=== PATIENT | male | born 1960 | race Caucasian/White ===

== ENCOUNTER → 2020-07-12 11:31 | Outpatient (CLI) | payer OTHER, SELFPAY ==
[2020-07-12 12:25] LABS: COVID19 -Nasal RAPID Negative (Negative)
== END ==
PROVIDERS: Visit Provider Student in an Organized Health Care Education/Training Program
DX: Z20.822 Contact with and (suspected) exposure to COVID-19 (principal)
CPT/HCPCS: 87635

== ENCOUNTER 2020-07-14 13:28 | Day surgery (SDC) | payer OTHER, SELFPAY ==
--- NOTE | 2020-07-14 08:54 | PM.PREOP ---
Pre-operative Note COVID-19 COVID-19 status: Negative Result date/Date tested (Pos, Neg/Pending): 07/12/20 Interval Note History & Physical reviewed/Exam performed by Physician: Yes Changes to H&P: No ASA Class (for procedural sedation): II
--- NOTE | 2020-07-14 08:55 | PM.OP.ENDO ---
Operative Date/Time/Diagnoses Date of procedure: 07/14/20 Procedure Notes Procedure in detail: ENDOSCOPIST: Varsha Jane MD Sedation RN: Jen Grande RN Sedation start time: Sedation end time: PROCEDURE: Colonoscopy [] INDICATIONS: 1. Screening for colon cancer MEDICATION: Levsin 0.125 mg sublingual, incremental doses of Versed and fentanyl until appropriate level sedation achieved. ASA CLASS: 2 CECAL WITHDRAWAL TIME: [] COMPLICATIONS: None. EXTENT OF PROCEDURE: Cecum. QUALITY OF PREP: []Good with portions of liquid stool. PROCEDURE: Prior to insertion of the colonoscope, a digital rectal examination was accomplished with circumferential palpation of the distal rectal mucosa without significant findings being noted.[] The high-definition [] colonoscope was passed into the rectum in the usual fashion and advanced over to the cecum without difficulty. The ileocecal valve, appendiceal stoma, and medial wall all could be inspected and []no abnormalities were seen. ASCENDING COLON: J maneuver was produced in the cecum and the proximal folds of the ascending colon were carefully inspected to the hepatic flexure and []. As the colonoscope was withdrawn, care was taken to expose and inspect the haustral folds and no abnormalities were seen. [] HEPATIC FLEXURE: Normal no polyps, diverticula or other abnormalities. [] TRANSVERSE COLON: Normal no polyps, diverticula or other abnormalities. [] DESCENDING COLON: Normal no polyps, diverticula or other abnormalities. [] SIGMOID COLON: Normal no polyps, diverticula or other abnormalities. [] RECTUM: Normal. J maneuver was produced. There was no significant perianal disease. The J maneuver was broken. The remainder of the rectum was inspected and there was [] no external hemorrhoid disease. The scope was withdrawn. IMPRESSION: 1. [] PLAN: 1. [] The possibility of a missed lesion including a malignancy has been discussed with the patient previously. Potential alarm symptoms have been discussed and should be reported immediately.
[2020-07-14 13:51] VITALS: BP 145/98; PULSE 95; RESP 16; TEMP 36.4; O2SAT 97; BMI 29.5
[2020-07-14] MEDS: HYOSCYAMINE 0.125 MG TABLET PO (13:59)
[2020-07-14] MEDS: LACTATED RINGERS 1,000 ML 200 ML IV (14:00)
--- NOTE | 2020-07-14 15:23 | SUR.PREOP ---
PATIENT IS DISCHARGED FROM PREOP WITHOUT UNDERGOING PROCEDURE PER MD ORDER DUE TO NEW ONSET AFIB CONFIRMED BY EKG. HE IS TO FOLLOW UP WITH DR. DELCID PER HER INSTRUCTIONS FOR CARDIAC WORK-UP OUTPATIENT PER HER INSTRUCTIONS. HANDOUTS PROVIDED ON ATRIAL FIB. AND REVIEWED WITH PATIENT. HE CONFIRMS UNDERSTANDING OF S/SX'S WARRANTING CALL TO 911 LISTED IN HANDOUT.
== END 2020-07-14 15:20 | disposition home or self-care (01) ==
PROVIDERS: PCP Student in an Organized Health Care Education/Training Program; Referring Provider Student in an Organized Health Care Education/Training Program; Visit Provider Student in an Organized Health Care Education/Training Program
PROC: 0DJD8ZZ Inspection of Lower Intestinal Tract, Via Natural or Artificial Opening Endoscopic (ICD-10-PCS; CPT 45378; principal; 2020-07-14 14:30)
DX: Z12.11 Encounter for screening for malignant neoplasm of colon (principal); K21.9 Gastro-esophageal reflux disease without esophagitis; Z53.09 Procedure and treatment not carried out because of other contraindication; I48.91 Unspecified atrial fibrillation
CPT/HCPCS: 45378; 93005

== ENCOUNTER → 2020-07-21 11:10 | Outpatient (CLI) | payer OTHER, SELFPAY ==
[2020-07-21] MEDS: COVID-19 VACC, Ad26(JANSSEN)/PF 0.5 ML IM (11:23)
== END ==
PROVIDERS: PCP Student in an Organized Health Care Education/Training Program; Visit Provider Internal Medicine
DX: Z23 Encounter for immunization (principal)
CPT/HCPCS: 0031A; 91303

== ENCOUNTER → 2020-08-10 07:51 | Outpatient (CLI) | payer OTHER, SELFPAY ==
--- NOTE | 2020-08-10 07:54 | DI.ECHO.S_ITS ---
[facility]---------+ [facility] +---------+ : : [address] : : : : [id number] : : : : Phone: [phone] Echocardiogram Report + + :Name: SHAHRAM JOE Study Date: 08/10/2020 Height: 74 in : :[facility] ReadingLocation: Weight: 230 lb : : Gender: Male BSA: 2.3 m2 : :: 1960 Age: 60 yrs BP: 143/95 mmHg: :Reason For Study: Atrial fibrillation : :Ordering Physician: FARHANA, : :RONY Performed By: Terrance Arguelles : :Referring: RONY DELCID : + + Interpretation Summary The ejection fraction is estimated to be 50-55%. The right ventricular systolic pressure is estimated to be at least 26 mmHg based on an estimated right atrial pressure of 3 mm Hg. There is trace mitral regurgitation. Procedure: A two-dimensional transthoracic echocardiogram with color flow and Doppler was performed. The study quality was technically good. There is no prior echocardiogram noted for this patient. The patient was in atrial fibrillation with heart rates between 73-96 bpm during the exam. Left Ventricle: The left ventricle is normal in size and wall thickness. Left ventricular systolic function is normal. The ejection fraction is estimated to be 50-55%. There are no focal wall motion abnormalities. Diastolic function could not be accurately assessed due to atrial fibrillation. Right Ventricle: The right ventricle is normal in size and function. Atria: Both atria are normal in size. There is no Doppler evidence for an interatrial shunt. Mitral Valve: The mitral valve is normal in structure and function. There is trace mitral regurgitation. Aortic Valve: The aortic valve is normal in structure and function. No aortic regurgitation is present. Tricuspid Valve: The tricuspid valve is normal in structure and function. There is trace tricuspid regurgitation. The right ventricular systolic pressure is estimated to be at least 26 mmHg based on an estimated right atrial pressure of 3 mm Hg. Pulmonic Valve: The pulmonic valve is not well visualized. Great Vessels: The aortic root is normal size. The dimensions of the ascending aorta are normal. The IVC is of normal diameter and collapses greater than 50% with a sniff. This suggests a low right atrial pressure of 3 mm Hg. Pericardium/ Pleura There is no pericardial effusion. There is no pleural effusion. MMode/2D Measurements & Calculations LVIDd: 4.8 cm LVOT diam: 2.1 cm LVIDs: 3.1 cm Ao root diam: 3.2 cm FS: 35.8 % asc Aorta Diam: 3.4 cm IVSd: 0.95 cm LVPWd: 0.86 cm LV garrett. diameter/BSA (cm/m^2): 2.1 LV sys. diameter/BSA (cm/m^2): 1.3 LA A2 area: 17.2 cm2 RA area: 18.1 cm2 LA A4 area: 19.1 cm2 LA length (vol): 5.2 cm LA vol: 53.1 ml LA vol index: 23.0 ml/m2 RVD1 (basal): 2.2 cm TAPSE: 2.0 cm Doppler Measurements & Calculations Ao V2 max: 87.8 cm/sec LVOT Max Jordan: 77.0 cm/sec Ao V2 mean: 65.9 cm/sec LV V1 max P.4 mmHg Ao max P.1 mmHg LV V1 VTI: 14.1 cm Ao mean P.9 mmHg JOSE(I,D): 3.0 cm2 Ao V2 VTI: 15.8 cm JOSE(V,D): 3.0 cm2 sev ratio: 0.89 JOSE indexed to BSA (cm^2/m^2): 1.3 TR max jordan: 238.4 cm/sec SV(LVOT): 47.8 ml TR max P.7 mmHg PA V2 max: 87.5 cm/sec PA V2 mean: 61.7 cm/sec PA mean P.7 mmHg PA pr(Accel): 45.8 mmHg Reading Physician:09:41 AM
== END ==
PROVIDERS: PCP Student in an Organized Health Care Education/Training Program; Referring Provider Student in an Organized Health Care Education/Training Program; Visit Provider Student in an Organized Health Care Education/Training Program
DX: I48.91 Unspecified atrial fibrillation (principal)
CPT/HCPCS: 93306

== ENCOUNTER → 2020-08-28 08:53 | Outpatient (ROUT) | payer OTHER, SELFPAY ==
[2020-08-28 09:13] LABS: INR 1.2 (0.9-1.3); Prothrombin Time 13.7 SECONDS (10.1-12.7)
== END ==
PROVIDERS: PCP Student in an Organized Health Care Education/Training Program; Visit Provider Student in an Organized Health Care Education/Training Program
DX: I48.91 Unspecified atrial fibrillation (principal)
CPT/HCPCS: 85610

== ENCOUNTER → 2020-09-04 09:41 | Outpatient (ROUT) | payer OTHER, SELFPAY ==
[2020-09-04 09:50] LABS: INR 1.3 (0.9-1.3)
--- OUTSIDE RECORDS SUMMARY | 2020-09-13 08:42 | XMS_ITS | Referral Summary ---
:1960 Author Organization [address] [address] Care Team Providers Name Role Phone Varsha Jane MD Primary Care Provider [phone] Reason for Referral Consultation (Routine) Status Reason Specialty Diagnoses / Referred By Referred To Procedures Contact Contact Closed Specialty Sleep Medicine Diagnoses Paroxysmal atrial fibrillation (CMS/HCC) Jayme [facility] Required [address] [place] [id number] [place], Phone: [place] [phone] Electronically signed by Jayme ONEIL atDiagnostic Imaging (Routine) Status Reason Specialty Diagnoses / Referred By Referred To Procedures Contact Contact Pending Specialty Radiology Diagnoses Paroxysmal atrial fibrillation (CMS/HCC) Jayme Lemus [facility] Services Procedures [facility] Required [address] [place] [address] [address] [place] [address] Electronically signed by Jayme ONEIL at (Routine) Status Reason Specialty Diagnoses / Referred By Referred To Procedures Contact Contact Pending Review Diagnoses Paroxysmal atrial fibrillation (CMS/HCC) Jayme Lemus Procedures ECHOCARDIOGRAM STRESS ISCHEMIA PA [address] [place] [address] [address] [place] [address] Electronically signed by Jamye ONEIL atConsultation (Routine) Status Reason Specialty Diagnoses / Referred By Referred To Procedures Contact Contact Canceled Specialty Sleep Medicine Diagnoses Paroxysmal atrial fibrillation (CMS/HCC) Jayme Lemus [facility] Required [address] [facility] [address] [place] [phone] [place] [phone] Phone: Fax: Electronically signed by Jayme ONEIL at Reason for Visit Reason Comments Atrial Fibrillation Evaluate and Treat (Routine) Status Reason Specialty Diagnoses / Procedures Referred By Brandon cobos To Contact Contact Authorized Diagnoses Unspecified atrial fibrillation Varsha Jane CARDIOLOGY Procedures [place] OFFICE OUTPATIENT VISIT MD Shweta [address] [place] [address] [place] [phone] Phone: Phone: [phone] Encounter Details Date Type Department Care Team Description 08/31/2020 Office Visit Merged With [facility] Nick Chavez Paroxysma l atrial Clinics Cardiology MD fibrillation ([facility]) [address] (Primary Dx) [address] [place] [address], [address] [phone] Allergies No Known Active Allergiesdocumented as of this encounter (statuses as of 09/06/2020) Medications Medication Sig Dispensed Refills Start Date End Date Status warfarin (COUMADIN) 1 Take 2 mg by 0 08/16/2020 Active mg tablet mouth daily documented as of this encounter (statuses as of 09/06/2020) Active Problems Problem Noted Date Paroxysmal atrial fibrillation 08/31/2020 documented as of this encounter (statuses as of 09/06/2020) Social History Tobacco Use Types Packs/Day Years Used Date Never Smoker Smokeless Tobacco: Never Used Sex Assigned at Date Recorded Not on file Job Start Date Occupation Industry Not on file Not on file Not on file documented as of this encounter Last Filed Vital Signs Vital Sign Reading Time Taken Comments Blood Pressure 108/70 08/31/2020 3:18 PM PDT Pulse 84 08/31/2020 3:18 PM PDT Temperature - - Respiratory Rate - - Oxygen Saturation - - Inhaled Oxygen Concentration - - Weight 102 kg (225 lb) 08/31/2020 3:18 PM PDT Height 189.2 cm (6' 2.5) 08/31/2020 3:18 PM PDT Body Mass Index 28.5 08/31/2020 3:18 PM PDT documented in this encounter Progress Notes Jayme Lemus, [facility] - 08/31/2020 3:00 PM PDT Subjective Patient ID: Chaitanya Moe is a 60 y.o. male that had no chief complaint listed for this encounter. HPI: 59 yo m w/ preserved LV function and pmh of GERD and persistent atrial fibrillation, on warfarin. Referred to EP for newly diagnosed afib. Was incidentally found to be in afib during recent colonoscopy. During follow up with PCP was started on warfarin and TTE and 7 day ambulatory monitor were ordered. TTE shows a grossly structurally and functionally normal heart with mild MR. 7 day monitor shows a 100% afib burden with borderline rate control. He reports feeling well overall. Remains active, plays golf frequently and is able to walk 18 holes though he reports feeling somewhat winded by the end of the course. He otherwise denies chest pain, shortness of breath, dyspnea on exertion, postural nocturnal dyspneasymptoms, palpitations, light headedness, dizziness, syncope or near syncope. He reports minimal ETOH use, 2 servings of caffeine a day, no tobacco use. He does report some symptoms suspicious for NAKITA. History reviewed. No pertinent past medical history. History reviewed. No pertinent surgical history. History reviewed. No pertinent family history. Social History Socioeconomic History ??? Marital status: Spouse name: Not on file ??? Number of children: Not on file ??? Years of education: Not on file ??? Highest education level: Not on file Tobacco Use ??? Smoking status: Never Smoker ??? Smokeless tobacco: Never Used No Known Allergies Current Medication List Sig warfarin (COUMADIN) 1 mg tablet Take 2 mg by mouth daily Review of Systems Constitutional: Positive for fatigue. Negative for unexpected weight change. Eyes: Negative for visual disturbance. Respiratory: Negative for chest tightness and shortness of breath. Cardiovascular: Negative for chest pain, palpitations and leg swelling. Gastrointestinal: Negative for blood in stool. Heartburn Endocrine: Negative for polydipsia. Genitourinary: Negative for hematuria. Skin: Negative for rash. Neurological: Negative for dizziness, syncope, weakness and light-headedness. Hematological: Does not bruise/bleed easily. Psychiatric/Behavioral: The patient is not nervous/anxious. All other systems reviewed and are negative. Objective BP 108/70 (BP Location: Left arm, Patient Position: Sitting) Pulse 84 Ht 1.892 m Wt 102 kg BMI 28.50 kg/m?? Physical Exam: General Appearance: Well-nourished, pleasant, cooperative, no apparent distress HEET: Normocephalic atraumatic, EOMI, no scleral icterus, no arcus, tongue midline, mucous membranesmoist, good dentition Neck: No obvious mass, supple Respiratory: Good aeration, clear to auscultation and percussion, no rales or wheeze Cardiovascular: Nondisplaced PMI, RRR, normal S1 and normal S2, no murmurs/rubs/gallops, JVP 4-5 cm,no JVD Pulses: Carotid and femoral pulses 2+ bilaterally without bruit, dorsalis pedis and anterior tibial pulses 2+ bilaterally Abdomen: Soft, nondistended, nontender, no heptosplenomegally, no hepatojugular reflux, normal bowelsounds without bruits Extremities: No clubbing, cyanosis or edema Neuro: Alert, no facial droop, tongue midline, no gross motor deficits Psych: Appropriate affect, normal mentation and memory Skin: Warm and dry, no rashes on face, neck, and lower extremities Assessment/Plan 59 yo m w/ preserved LV function and pmh of GERD and persistent atrial fibrillation, on warfarin. Persistent atrial fibrillation Persistent atrial fibrillation with borderline rate control. Normal size LA. Recommended stress echofor ischemic r/o as well as 4 weeks of INRs followed by DCCV for trial of medical therapy. -Continue INRs -Weekly until DCCV -DCCV following 4 weeks of INRs. -Sleep medicine referral. Electronically signed by Nick Chavez MD 08/31/2020 4:06 PM Associated attestation - Nick Chavez MD - 08/31/2020 4:11 PM PDTI saw and evaluated the patient, participating in the avendaño portions of the service. I reviewed Alis's note. I agree with his findings and plan.documented in this encounter Plan of Treatment Scheduled Orders Name Type Priority Associated Diagnoses Order S chedule ECHOCARDIOGRAM STRESS Imaging Routine Paroxysmal atrial E xpected: ISCHEMIA fibrillation [place]31[place]2020, [place] Ex[place]: 2022 RUPAL CARDIOVERSION Imaging Routine Paroxysmal atrial Expec radha: fibrillation 08/31/2020, [place] Ex[place]: 2021 SARS-CoV-2 (COVID-19) Microbiology Routine Paroxysmal atrial 1 Occurrences QUAL PCR (General fibrillation starting 0 08/31/2020 Screening) [place] until 2 Scheduled Referrals Name Type Priority Associated Diagnoses Order S chedule SRC MV Referral to Outpatient Referral Routine Paroxysmal atri al Ordered: [facility] fibrillation 08/31/2020 [place] XTRNL Referral to Outpatient Referral Routine Paroxysmal atria l Ordered: Sleep Medicine fibrillation 08/31/2020 [place] documented as of this encounter Procedures Procedure Name Priority Date/Time Associated Diagnosis Comme nts ECG 12-LEAD Routine 08/31/2020 3:27 PM Paroxysmal atrial Res ults for this PDT fibrillation [place] proce dure are in the results section. documented in this encounter Results ECG 12 Lead (Clinic - Future) (08/31/2020 3:27 PM PDT) Narrative Performed At This result has an attachment that is no t available. Result approved by Nick Chavez MD on 08/31/20 documented in this encounter Visit Diagnoses Diagnosis Paroxysmal atrial fibrillation [place] - Primary Atrial fibrillation documented in this encounter Guarantor Name Account Type Relation to Date of Phone Billing Address Patient Chaitanya Moe Personal/Family Self 1960 [phone]) [place] [address] documented as of this encounter Advance Directives Documents on File Type Date Recorded Patient Manager Line Explanati on Advance Directives and Living Will
== END ==
PROVIDERS: PCP Student in an Organized Health Care Education/Training Program; Visit Provider Student in an Organized Health Care Education/Training Program
DX: I48.91 Unspecified atrial fibrillation (principal); Z79.01 Long term (current) use of anticoagulants
CPT/HCPCS: 85610

== ENCOUNTER → 2020-09-13 09:09 | Outpatient (ROUT) | payer OTHER, SELFPAY ==
[2020-09-13 09:30] LABS: INR 1.5 (0.9-1.3); Prothrombin Time 16.3 SECONDS (10.1-12.7)
== END ==
PROVIDERS: PCP Student in an Organized Health Care Education/Training Program; Visit Provider Student in an Organized Health Care Education/Training Program
DX: Z79.01 Long term (current) use of anticoagulants (principal)
CPT/HCPCS: 85610

== ENCOUNTER → 2020-09-20 09:58 | Outpatient (ROUT) | payer OTHER, SELFPAY ==
[2020-09-20 10:07] LABS: INR 1.9 (0.9-1.3)
== END ==
PROVIDERS: PCP Student in an Organized Health Care Education/Training Program; Visit Provider Student in an Organized Health Care Education/Training Program
DX: Z79.01 Long term (current) use of anticoagulants (principal)
CPT/HCPCS: 85610

== ENCOUNTER → 2020-09-27 09:13 | Outpatient (ROUT) | payer OTHER, SELFPAY ==
[2020-09-27 09:21] LABS: INR 3.8 (0.9-1.3); Prothrombin Time 43.7 SECONDS (10.1-12.7)
== END ==
PROVIDERS: PCP Student in an Organized Health Care Education/Training Program; Visit Provider Student in an Organized Health Care Education/Training Program
DX: Z79.01 Long term (current) use of anticoagulants (principal)
CPT/HCPCS: 85610

== ENCOUNTER → 2020-10-03 11:10 | Outpatient (ROUT) | payer OTHER, SELFPAY ==
[2020-10-03 11:25] LABS: INR 3.7 (0.9-1.3)
== END ==
PROVIDERS: PCP Student in an Organized Health Care Education/Training Program; Visit Provider Student in an Organized Health Care Education/Training Program
DX: Z79.01 Long term (current) use of anticoagulants (principal)
CPT/HCPCS: 85610

== ENCOUNTER → 2020-12-06 08:30 | Outpatient (ROUT) | payer OTHER, SELFPAY ==
[2020-12-06 08:43] LABS: INR 2.7 (0.9-1.3); Prothrombin Time 30.4 SECONDS (10.1-12.7)
== END ==
PROVIDERS: PCP Student in an Organized Health Care Education/Training Program; Visit Provider Student in an Organized Health Care Education/Training Program
DX: Z79.01 Long term (current) use of anticoagulants (principal)
CPT/HCPCS: 85610

== ENCOUNTER → 2020-12-13 13:45 | Outpatient (ROUT) | payer OTHER, SELFPAY ==
[2020-12-13 13:52] LABS: INR 2.9 (0.9-1.3); Prothrombin Time 33.4 SECONDS (10.1-12.7)
== END ==
PROVIDERS: PCP Student in an Organized Health Care Education/Training Program; Visit Provider Student in an Organized Health Care Education/Training Program
DX: Z79.01 Long term (current) use of anticoagulants (principal)
CPT/HCPCS: 85610

== ENCOUNTER → 2020-12-27 11:14 | Outpatient (ROUT) | payer OTHER, SELFPAY ==
[2020-12-27 11:44] LABS: Prothrombin Time 23.3 SECONDS (10.1-12.7)
== END ==
PROVIDERS: PCP Student in an Organized Health Care Education/Training Program; Visit Provider Student in an Organized Health Care Education/Training Program
DX: Z79.01 Long term (current) use of anticoagulants (principal)
CPT/HCPCS: 85610

== ENCOUNTER → 2021-01-03 10:08 | Outpatient (ROUT) | payer OTHER, SELFPAY ==
[2021-01-03 10:26] LABS: INR 2.2 (0.9-1.3); Prothrombin Time 24.6 SECONDS (10.1-12.7)
== END ==
PROVIDERS: PCP Student in an Organized Health Care Education/Training Program; Visit Provider Student in an Organized Health Care Education/Training Program
DX: Z79.01 Long term (current) use of anticoagulants (principal)
CPT/HCPCS: 85610

== ENCOUNTER → 2021-01-10 09:46 | Outpatient (ROUT) | payer OTHER, SELFPAY ==
[2021-01-10 09:54] LABS: INR 2.7 (0.9-1.3); Prothrombin Time 31.9 SECONDS (10.1-12.7)
== END ==
PROVIDERS: PCP Student in an Organized Health Care Education/Training Program; Visit Provider Student in an Organized Health Care Education/Training Program
DX: Z79.01 Long term (current) use of anticoagulants (principal)
CPT/HCPCS: 85610

== ENCOUNTER → 2021-01-17 10:35 | Outpatient (ROUT) | payer OTHER, SELFPAY ==
[2021-01-17 10:59] LABS: INR 2.6 (0.9-1.3); Prothrombin Time 29.9 SECONDS (10.1-12.7)
== END ==
PROVIDERS: PCP Student in an Organized Health Care Education/Training Program; Visit Provider Student in an Organized Health Care Education/Training Program
DX: Z79.01 Long term (current) use of anticoagulants (principal)
CPT/HCPCS: 85610

== ENCOUNTER → 2021-09-19 12:15 | Outpatient (CLI) | payer OTHER, SELFPAY ==
[2021-09-19 12:50] LABS: COVID19 -Nasal RAPID Negative (Negative)
== END ==
PROVIDERS: PCP Student in an Organized Health Care Education/Training Program; Referring Provider Student in an Organized Health Care Education/Training Program; Visit Provider Student in an Organized Health Care Education/Training Program
DX: Z20.822 Contact with and (suspected) exposure to COVID-19 (principal)
CPT/HCPCS: 87635; C9803

== ENCOUNTER 2021-09-21 13:09 | Day surgery (SDC) | payer OTHER, SELFPAY ==
--- NOTE | 2021-09-21 12:15 | PM.HP.1 ---
History of Present Illness History of Present Illness Date Patient Seen: 09/21/21 Chief complaint: SDC Narrative: 60 Years Old Male seen today for consideration of a screening colonoscopy. Last colonoscopy in 2010, normal. He did prep for colonoscopy on 07/14/20, procedure was canceled secondary to new onset atrial fibrillation. He has since had a cardioversion on 12/20/20 that lasted for 48 hours, then reverted back to atrial fibrillation. He then underwent an ablation and has been able to stop his flecainide and metoprolol. He has been off Xarelto since 09/08/21. Pre-op telemetry showed sinus rhythm. FIT test was positive on 02/10/2021. There have been no lower GI symptoms suggesting disease such as change in bowel habits, bleeding, abdominal pain or anemia. There's been no family history of colon cancer or colon polyps. Overall health issues have been stable, including no major cardiac events for at least 6 weeks. 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 Household Members: spouse Judie Education: Masters Patient History Family & Social History Social History: household members spouse Tobacco & Substance use: Smoking Status Never smoker alcohol intake current alcohol intake frequency holiday/special occasion Substance Use Type does not use Meds Home Medications and Allergies Home Medications Medication Instructions Recorded Confirmed Type Oral appliance for moderate NAKITA #1 ea 02/20/21 Rx Allergies Allergy/AdvReac Type Severity Reaction Status Date / Time No Known Drug Allergies Allergy Verified 01/16/21 10:08 Review of Systems Review of Systems Narrative: All remaining ROS were reviewed and negative except as addressed. Exam Narrative Exam Narrative: GENERAL: Alert and oriented, appearing stated age and in no acute distress. HEENT: Head normocephalic/atraumatic. Extraocular movements intact. LUNGS: Clear to ausculation bilaterally, no wheezes, rhonchi or rales. CV: Normal S1 and S2 with regular rate and rhythm, no audible murmurs, rubs or gallops. ABDOMEN: Soft, non-tender, non-distended, no organomegaly. Positive bowel sounds. EXTREMITIES: No clubbing, cyanosis, or edema. NEURO: Cranial nerves II through XII grossly intact, no focal deficits. PSYCH: Alert and oriented x 3. SKIN: No concerning lesions. Assessment & Plan Assessment & Plan narrative: 1. Positive fit test 2. Screening for colon cancer Plan for colonoscopy. The nature and character of the procedure as well as anticipated results were discussed. The possibility of not completing the procedure was also discussed. Possible complications including aspiration pneumonia, bleeding, perforation and reaction to medications either for sedation or preparation and missed lesions were discussed. Questions were answered and proceeding to the colonoscopy was elected. Informed consent signed. Patient has been off of his xarelto for 48 hours prior to procedure. Plan will be to restart in 48 hours if procedure routine. I sincerely appreciate the referral allowing me to participate in this patient's care. Please contact me with any questions or concerns.
--- NOTE | 2021-09-21 12:26 | PM.OP.COLON ---
Operative Date/Time/Diagnoses Date of procedure: 09/21/21 Procedure Notes SCOAP/Timeout: 2:38 p.m. Procedure in detail: ENDOSCOPIST: Varsha Jane MD Sedation RN: Naomi Workman RN Sedation start time: 2:39 p.m. Sedation end time: 2:55 p.m. PROCEDURE: Colonoscopy INDICATIONS: 1. Positive FIT test 2. Screening for colon cancer MEDICATION: Levsin 0.125 mg sublingual, incremental doses of Versed and fentanyl until appropriate level sedation achieved. ASA CLASS: 2 CECAL WITHDRAWAL TIME: 9 minutes COMPLICATIONS: None. EXTENT OF PROCEDURE: Cecum. QUALITY OF PREP: Good with portions of liquid stool. PROCEDURE: Prior to insertion of the colonoscope, a digital rectal examination was accomplished with circumferential palpation of the distal rectal mucosa without significant findings being noted. The high-definition colonoscope was passed into the rectum in the usual fashion and advanced over to the cecum without difficulty. The ileocecal valve, appendiceal stoma, and medial wall all could be inspected and no abnormalities were seen. ASCENDING COLON: As the colonoscope was withdrawn, care was taken to expose and inspect the haustral folds and no abnormalities were seen. HEPATIC FLEXURE: Normal, no polyps, diverticula or other abnormalities. TRANSVERSE COLON: Normal, no polyps, diverticula or other abnormalities. DESCENDING COLON: Minor diverticulosis, otherwise, normal, no polyps, or other abnormalities. SIGMOID COLON: Minor diverticulosis, otherwise normal, no polyps, or other abnormalities. RECTUM: Normal. J maneuver was produced. There was no significant perianal disease. The J maneuver was broken. The remainder of the rectum was inspected and there was no external hemorrhoid disease. The scope was withdrawn. IMPRESSION: 1. Normal colonoscopy 2. Left-sided diverticulosis, minor PLAN: 1. Repeat colonoscopy in 10 years. The possibility of a missed lesion including a malignancy has been discussed with the patient previously. Potential alarm symptoms have been discussed and should be reported immediately.
[2021-09-21 13:31] VITALS: BP 137/97; PULSE 80; RESP 16; TEMP 36.3; O2SAT 98; BMI 28.8
[2021-09-21] MEDS: HYOSCYAMINE 0.125 MG TABLET PO (13:46)
[2021-09-21] MEDS: LACTATED RINGERS 1,000 ML 150 ML IV (13:48)
[2021-09-21] MEDS: fentaNYL 250 MCG/5 ML INJ 150 MCG IV (14:53)
[2021-09-21] MEDS: MIDAZOLAM 5 MG/5 ML VIAL IV (14:53)
[2021-09-21 15:01] VITALS: BP 122/88; PULSE 82; RESP 13; TEMP 36.3; O2SAT 93
[2021-09-21 15:06] VITALS: BP 126/81; PULSE 79; RESP 10; O2SAT 94
[2021-09-21 15:11] VITALS: BP 120/82; PULSE 80; RESP 15; TEMP 36.6; O2SAT 94
[2021-09-21 15:24] VITALS: BP 116/76; PULSE 75; RESP 16; TEMP 36.9; O2SAT 98
== END 2021-09-21 15:27 | disposition home or self-care (01) ==
PROVIDERS: PCP Student in an Organized Health Care Education/Training Program; Referring Provider Student in an Organized Health Care Education/Training Program; Visit Provider Student in an Organized Health Care Education/Training Program
PROC: 0DJD8ZZ Inspection of Lower Intestinal Tract, Via Natural or Artificial Opening Endoscopic (ICD-10-PCS; CPT 45378; principal; 2021-09-21 14:30)
DX: K57.30 Diverticulosis of large intestine without perforation or abscess without bleeding (principal)
CPT/HCPCS: 45378; 85610; J2250; J3010

== ENCOUNTER → 2022-07-04 07:43 | Outpatient (CLI) | payer OTHER, SELFPAY ==
[2022-07-04 08:37] LABS: Alanine Aminotransferase 20 IU/L (<50); Albumin 4.1 g/dL (3.5-5.0); Albumin Globulin Ratio 1.3 (1.0-2.8); Alkaline Phosphatase 90 U/L (38-126); Aspartate Aminotransferase 23 IU/L (17-59); Bilirubin Total 0.8 mg/dL (0.2-1.3); Blood Urea Nitrogen 18 mg/dL (9-20); Calcium 8.9 mg/dL (8.4-10.2); Carbon Dioxide 28 mmol/L (22-32); Chloride 105 mmol/L (98-107); Cholesterol 116 mg/dL (140-199); Estimated Glomerular Filt Rate > 60 mL/min (>60); Globulin 3.1 g/dL (1.7-4.1); Glucose 92 mg/dL (80-110); HDL Cholesterol 28 mg/dL (40-60); HEMOLYSIS < 15 (0-50); LDL Cholesterol Calculated 64 mg/dL (<100); Potassium 4.6 mmol/L (3.4-5.1); Sodium 140 mmol/L (137-145); Total Protein 7.2 g/dL (6.3-8.2); Triglycerides 122 mg/dL (35-150)
[2022-07-04 08:46] LABS: Creatinine Urine Random 197.3 mg/dL
[2022-07-04 08:53] LABS: Microalbumin Urine Random < 0.6 mg/dL (0-1.6)
== END ==
PROVIDERS: PCP Family Medicine; Referring Provider Family Medicine; Visit Provider Family Medicine
DX: G47.33 Obstructive sleep apnea (adult) (pediatric) (principal); R03.0 Elevated blood-pressure reading, without diagnosis of hypertension
CPT/HCPCS: 36415; 80053; 80061; 82043; 82570

== ENCOUNTER 2023-03-12 09:00 | Outpatient (RCR) | payer OTHER, SELFPAY ==
--- NOTE | 2023-02-24 09:50 | PT.OIE ---
Current Diagnoses Lumbago with sciatica, unspecified side (02/24/23) Past Medical History (Last Updated 06/30/22 @ 19:34 by Bridgette Mota) A-fib (~2020) Chicken pox Situational anxiety (~2021) Past Surgical History (Last Updated 06/30/22 @ 19:34 by Bridgette Mota) Anesthesia History of cardiac radiofrequency ablation (~2020) Visit Care Team Role Provider Type Ibis Winkler DO Attending Provider Physician Family Provider Primary Care Provider Referring Provider Specialty: Medical Address: [address] [place] [address], [address], [place], [address] Email: [email or web address] Physical Therapy Initial Evaluation PT-OP-A Visit Information Start: 02/19/23 08:52 Freq: Status: Active Protocol: Document 02/24/23 09:50 AM (Rec: 02/24/23 17:09 AM [id number]) Out-Patient Physical Therapy Visit Information Visit Information Visit Type Initial Evaluation Visit Start Time 09:50 Visit Stop Time 10:30 Total Visit Minutes 40 Visit Number 1 Evaluation Information Evaluation Date 02/24/23 PT-OP-B Current Condition Start: 02/19/23 08:52 Freq: Status: Active Protocol: Document 02/24/23 09:50 AM (Rec: 02/24/23 17:09 AM [id number]) Current Condition History of Current Condition Onset Date 6 weeks ago. Current Complaints Minimal R glute pain currently . History of Current Condition Pt reports pain started 6 weeks ago. Pt without known injury to cause back pain. Pt thinks that it might have started from sitting wrong. Pt reports that he mentioned pain to referring provider at yearly check-up and was referred to PT. Between the time from yearly check-up to now, pt reports significant decrease in pain. Pt reports that he is able to play golf without pain. Pt reports that he has been doing a seated figure 4 stretch and that seems to have helped. Pt reports that pain was primarily at his R glute with occasional radicular symptoms to hamstring. Pt denies low back symptoms. Prior Treatments and Tests none Future Testing and Treatments Planned none Treatment Goals Patient/Caregiver Goals Pt reports that he would like to be evaulated to see if there are any exercises that he can do to prevent symptoms from returning. PT-OP-C Subjective Start: 02/19/23 08:52 Freq: Status: Active Protocol: Document 02/24/23 09:50 AM (Rec: 02/24/23 17:09 AM [id number]) OP-PT Subjective Patient Comments Patient Comments Pt reports that he is feeling better since seeing his referring provider, but would like to have ideas in case pain comes back. Patient Questionnaires Oswestry Low Back Index Oswestry Score 6/50 Oswestry Impairment 1 to 19% Impaired (Score 1-19) OP-PT Pain Assessment Pain Assessment Grid Paper Pain Assessment Grid Completed Yes Location R hip Intensity 3 Scale Used Numeric (0 - 10) Description Aching Frequency Intermittent Pain Aggravating Factors Sitting,Bending PT-OP-D Balance Start: 02/19/23 08:52 Freq: Status: Active Protocol: Document 02/24/23 09:50 AM (Rec: 02/24/23 17:09 AM [id number]) Balance Tests Single Limb Standing Single Limb- Right 10 Single Limb- Left 10 PT-OP-K Range of Motion Start: 02/19/23 08:52 Freq: Status: Active Protocol: Document 02/24/23 09:50 AM (Rec: 02/24/23 17:09 AM [id number]) Lumbar Spine Range of Motion Lumbar Spine Active Testing Position Standing Flexion 75 Extension 75 Rotation Left 75 Rotation Right 75 Lateral Flexion Left 75 Lateral Flexion Right 75 Comments flexion: 6.5 in (from fingertips to floor) R lateral flexion: 20 in (from fingertips to floor) L lateral flexion: 18.5 (from finger tips to floor) Ext 35 deg % above is 75% of normal=(100% ) Hip Goniometric Range of Motion Hip Right Active Internal Rotation 29 External Rotation 20 Comments Hamstring 90/90: 35 Left Active Internal Rotation 25 External Rotation 25 Comments Hamstring 90/90: 35 PT-OP-L Special Tests Start: 02/19/23 08:52 Freq: Status: Active Protocol: Document 02/24/23 09:50 AM (Rec: 02/24/23 17:09 AM [id number]) Special Tests Lumbar Spine Special Tests Prone Press Up Test Results negative for sxs, Pt report low back tightness only. PT-OP-M Strength Start: 02/19/23 08:52 Freq: Status: Active Protocol: Document 02/24/23 09:50 AM (Rec: 02/24/23 17:09 AM [id number]) Hip Strength Hip Manual Muscle Testing Right Flexion (L2) 4 Good Extension (S1) 5 Normal Abduction 4- Good- Adduction 5 Normal External Rotation 4- Good- Internal Rotation 4- Good- Comments pain with IR testing Left Flexion (L2) 4 Good Abduction 4- Good- External Rotation 4 Good Internal Rotation 4 Good Knee Strength Knee Manual Muscle Testing Right Flexion (S2) 5 Normal Extension (L3) 5 Normal Left Flexion (S2) 5 Normal Extension (L3) 5 Normal PT-OP-Q Treatments Start: 02/19/23 08:52 Freq: Status: Active Protocol: Document 02/24/23 09:50 AM (Rec: 02/24/23 17:09 AM [id number]) Therapeutic Exercises Supine Exercises Figure 4 stretch Side bilateral Reps/Minutes x30 sec Prone Exercises EMILIA Reps/Minutes x2 min Sidelying Exercises Clamshell Side bilateral Reps/Minutes x10 ea Comments cues for lumbopelvic stab Standing Exercises Hip hinge Equipment Used trekking pole Reps/Minutes x10 Comments cues for hip hinge HS stretch Side bilateral Equipment Used at step Reps/Minutes x30 sec ea LE PT-OP-T Assessment and Plan Start: 02/19/23 08:52 Freq: Status: Active Protocol: Document 02/24/23 09:50 AM (Rec: 02/24/23 17:09 AM [id number]) Physical Therapy Assessment Rehab Potential Rehabilitation Potential Excellent Evaluation Complexity Number of Personal Factors/Comorbidities 1-2 Number of Body Systems Impaired 1-2 Clinical Presentation at Evaluation Stable Impairments Impairments Activity Tolerance,Balance, Functional Activities, Functional Mobility,Gait,Pain, Posture,ROM,Soft Tissue Mobility,Strength Goals Hip hinge Flying Shear Operator Goal (LTG) Pt able to demonstrate proper hip hinge for inproved tolerance to functional bending to tack picker golf ball/ objects. LTG Duration 03/24/23 Hamstring length Retirement Goal (LTG) Pt with HS 90/90 length of 25 deg. LTG Duration 03/24/23 HEP Retirement Goal (LTG) Pt independent with HEP. LTG Duration 03/24/23 Assessment Summary Assessment Chaitanya Moe presents to PT with hx of R glute pain. Pt without pain during assessment today. Pt demonstrates good standing lumbar ROM without pain. Pt able to tolerate prone press-up without reported stiffness at low back. Pt with some anterior hip impingement-type pain with DKTC. Pt demonstrates limitations in ROM at eugenia hamstrings, glutes and hip flexors. Pt demonstrates mild weakness at bilateral glutes. Pt with difficulty with lower abdominal stabilization with lower abdominal testing, though denies pain. Pt challenged with hip-hinge and would benefit from continued education. Pt would benefit from continued PT to progress postural strength and LE mobility to decrease pain and prevent future exacerbation of pain. Physical Therapy Plan Frequency and Duration Frequency of Treatment 1x/Week Duration of treatment (weeks) 4 Plan of Care Start Date 02/24/23 Plan of Care End Date 03/24/23 Therapeutic Interventions Therapeutic Interventions Balance Training,Gait Training ,Home Exercise Program,Joint Mobilizations,Manual Therapy, Neuromuscular Re-education, Patient/Caregiver Education, Self-Care/Home Management,Soft Tissue Mobilization, Therapeutic Activities, Therapeutic Exercises Modalities Cold Pack/Ice Massage,Electric Stimulation,Hot Packs, Ultrasound Next Visit Focus/Plan Next Note Type Treatment Note Next Visit Plan Progress HEP, progress trunk and lumbopelvic strength, assess functional hip hinge
--- NOTE | 2023-02-24 09:50 | PT.OPPOC ---
Physical, Occupational & Speech Therapy At [facility] Current Diagnoses Lumbago with sciatica, unspecified side (02/24/23) Visit Care Team Role Provider Type Ibis Winkler DO Attending Provider Physician Family Provider Primary Care Provider Referring Provider Specialty: Medical Address: [address] [place] [address], [address], [place], [address] Email: [email or web address] Plan Of Care PT-OP-T Assessment and Plan Start: 02/19/23 08:52 Freq: Status: Active Protocol: Document 02/24/23 09:50 AM (Rec: 02/24/23 17:09 AM [id number]) Physical Therapy Assessment Rehab Potential Rehabilitation Potential Excellent Evaluation Complexity Number of Personal Factors/Comorbidities 1-2 Number of Body Systems Impaired 1-2 Clinical Presentation at Evaluation Stable Impairments Impairments Activity Tolerance,Balance, Functional Activities, Functional Mobility,Gait,Pain, Posture,ROM,Soft Tissue Mobility,Strength Goals Hip hinge Second Facing Baster Goal (LTG) Pt able to demonstrate proper hip hinge for inproved tolerance to functional bending to apple picking supervisor golf ball/ objects. LTG Duration 03/24/23 Hamstring length Second Facing Baster Goal (LTG) Pt with HS 90/90 length of 25 deg. LTG Duration 03/24/23 HEP Second Facing Baster Goal (LTG) Pt independent with HEP. LTG Duration 03/24/23 Assessment Summary Assessment Chaitanya Moe presents to PT with hx of R glute pain. Pt without pain during assessment today. Pt demonstrates good standing lumbar ROM without pain. Pt able to tolerate prone press-up without reported stiffness at low back. Pt with some anterior hip impingement-type pain with DKTC. Pt demonstrates limitations in ROM at eugenia hamstrings, glutes and hip flexors. Pt demonstrates mild weakness at bilateral glutes. Pt with difficulty with lower abdominal stabilization with lower abdominal testing, though denies pain. Pt challenged with hip-hinge and would benefit from continued education. Pt would benefit from continued PT to progress postural strength and LE mobility to decrease pain and prevent future exacerbation of pain. Physical Therapy Plan Frequency and Duration Frequency of Treatment 1x/Week Duration of treatment (weeks) 4 Plan of Care Start Date 02/24/23 Plan of Care End Date 03/24/23 Therapeutic Interventions Therapeutic Interventions Balance Training,Gait Training ,Home Exercise Program,Joint Mobilizations,Manual Therapy, Neuromuscular Re-education, Patient/Caregiver Education, Self-Care/Home Management,Soft Tissue Mobilization, Therapeutic Activities, Therapeutic Exercises Modalities Cold Pack/Ice Massage,Electric Stimulation,Hot Packs, Ultrasound Next Visit Focus/Plan Next Note Type Treatment Note Next Visit Plan Progress HEP, progress trunk and lumbopelvic strength, assess functional hip hinge Plan of Care Dates Plan of Care Start Date 02/24/23 Plan of Care End Date 03/24/23 Electronically Signed by: Niharika Lozada, PT 02/24/23 [id number] If you are in agreement with this Plan of Care, please return a signed and dated copy. I have reviewed this Plan of Care and certify that the skilled therapy services above are required to meet the patient?s needs. Physician Signature Date Printed Name and Credentials Clinical Instructor Signature Printed Name and Credentials
--- NOTE | 2023-03-04 09:53 | PT.OTN ---
Current Diagnoses Lumbago with sciatica, unspecified side (03/04/23) Physical Therapy Treatment Note PT-OP-A Visit Information Start: 02/19/23 08:52 Freq: Status: Active Protocol: Document 03/04/23 09:53 AM (Rec: 03/04/23 11:58 AM [id number]) Out-Patient Physical Therapy Visit Information Visit Information Visit Type Treatment Note Visit Start Time 09:53 Visit Stop Time 10:32 Total Visit Minutes 39 Visit Number 2 PT-OP-B Current Condition Start: 02/19/23 08:52 Freq: Status: Active Protocol: Document 03/04/23 09:53 AM (Rec: 03/04/23 11:58 AM [id number]) Current Condition History of Current Condition Onset Date 6 weeks ago. Current Complaints Minimal R glute pain currently . History of Current Condition Pt reports pain started 6 weeks ago. Pt without known injury to cause back pain. Pt thinks that it might have started from sitting wrong. Pt reports that he mentioned pain to referring provider at yearly check-up and was referred to PT. Between the time from yearly check-up to now, pt reports significant decrease in pain. Pt reports that he is able to play golf without pain. Pt reports that he has been doing a seated figure 4 stretch and that seems to have helped. Pt reports that pain was primarily at his R glute with occasional radicular symptoms to hamstring. Pt denies low back symptoms. Prior Treatments and Tests none Future Testing and Treatments Planned none PT-OP-C Subjective Start: 02/19/23 08:52 Freq: Status: Active Protocol: Document 03/04/23 09:53 AM (Rec: 03/04/23 11:58 AM [id number]) OP-PT Subjective Patient Comments Patient Comments Pt reports that his back is a little stiff and sore at times . Pt also reports stiffness pointing to elmer adductor muscles. Pt reports that he was able to walk 18 holes for golf without back pain. PT-OP-D Balance Start: 02/19/23 08:52 Freq: Status: Active Protocol: Document 02/24/23 09:50 AM (Rec: 02/24/23 17:09 AM [id number]) Balance Tests Single Limb Standing Single Limb- Right 10 Single Limb- Left 10 PT-OP-K Range of Motion Start: 02/19/23 08:52 Freq: Status: Active Protocol: Document 02/24/23 09:50 AM (Rec: 02/24/23 17:09 AM [id number]) Lumbar Spine Range of Motion Lumbar Spine Active Testing Position Standing Flexion 75 Extension 75 Rotation Left 75 Rotation Right 75 Lateral Flexion Left 75 Lateral Flexion Right 75 Comments flexion: 6.5 in (from fingertips to floor) R lateral flexion: 20 in (from fingertips to floor) L lateral flexion: 18.5 (from finger tips to floor) Ext 35 deg % above is 75% of normal=(100% ) Hip Goniometric Range of Motion Hip Right Active Internal Rotation 29 External Rotation 20 Comments Hamstring 90/90: 35 Left Active Internal Rotation 25 External Rotation 25 Comments Hamstring 90/90: 35 PT-OP-L Special Tests Start: 02/19/23 08:52 Freq: Status: Active Protocol: Document 02/24/23 09:50 AM (Rec: 02/24/23 17:09 AM [id number]) Special Tests Lumbar Spine Special Tests Prone Press Up Test Results negative for sxs, Pt report low back tightness only. PT-OP-M Strength Start: 02/19/23 08:52 Freq: Status: Active Protocol: Document 02/24/23 09:50 AM (Rec: 02/24/23 17:09 AM [id number]) Hip Strength Hip Manual Muscle Testing Right Flexion (L2) 4 Good Extension (S1) 5 Normal Abduction 4- Good- Adduction 5 Normal External Rotation 4- Good- Internal Rotation 4- Good- Comments pain with IR testing Left Flexion (L2) 4 Good Abduction 4- Good- External Rotation 4 Good Internal Rotation 4 Good Knee Strength Knee Manual Muscle Testing Right Flexion (S2) 5 Normal Extension (L3) 5 Normal Left Flexion (S2) 5 Normal Extension (L3) 5 Normal PT-OP-Q Treatments Start: 02/19/23 08:52 Freq: Status: Active Protocol: Document 03/04/23 09:53 AM (Rec: 03/04/23 11:58 AM [id number]) Therapeutic Exercises Supine Exercises Bridge Reps/Minutes x10 Comments cued TA stab Sahrmann Supine Exercise Name low ab Reps/Minutes x10 Prone Exercises Superman Prone Exercise Name arms at sides Reps/Minutes x10 EMILIA Reps/Minutes 2x1 min Sidelying Exercises Clamshell Side bilateral Resistance Warrick TB Reps/Minutes x20 Comments cues for lumbopelvic stab Standing Exercises Deadlift Resistance 8# ea arm Reps/Minutes x10 Pallof press Side bilateral Resistance GTB Reps/Minutes 2x10 Comments cues to TA stab Hip hinge Equipment Used trekking pole Reps/Minutes x10 Comments cues for hip hinge Other Exercises Kneeling hip flexor stretch Side bilateral Reps/Minutes x1 min ea LE Manual Therapy Treatment Soft Tissue Mobilization Lumbar Body Location Elmer lumbar paraspinals and QL Mobilization Type Myofascial Release,Strumming Body Position Prone Joint Mobilizations lumbar Joint L1-5 Direction P-A Grade II Body Position Prone PT-OP-T Assessment and Plan Start: 02/19/23 08:52 Freq: Status: Active Protocol: Document 03/04/23 09:53 AM (Rec: 03/04/23 11:58 AM [id number]) Physical Therapy Assessment Goals Hip hinge Longterm Goal (LTG) Pt able to demonstrate proper hip hinge for inproved tolerance to functional 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 LTG Duration 03/24/23 Hamstring length Longterm Goal (LTG) Pt with HS 90/90 length of 25 deg. LTG Duration 03/24/23 HEP Longterm Goal (LTG) Pt independent with HEP. LTG Duration 03/24/23 Assessment Summary Assessment Pt with improved tolerance and ROM with EMILIA following STM and lumbar mobs. Pt without production of low back or glute symptoms with trunk strengthening exercises. Pt continues to be stiff at elmer hamstrings. Pt would benefit from continued PT to progress trunk stab and LE mobility to decrease chance of recurrence of LBP/sciatic sxs. Physical Therapy Plan Frequency and Duration Frequency of Treatment 1x/Week Duration of treatment (weeks) 4 Plan of Care Start Date 02/24/23 Plan of Care End Date 03/24/23 Therapeutic Interventions Therapeutic Interventions Balance Training,Gait Training ,Home Exercise Program,Joint Mobilizations,Manual Therapy, Neuromuscular Re-education, Patient/Caregiver Education, Self-Care/Home Management,Soft Tissue Mobilization, Therapeutic Activities, Therapeutic Exercises Modalities Cold Pack/Ice Massage,Electric Stimulation,Hot Packs, Ultrasound Next Visit Focus/Plan Next Note Type Treatment Note Next Visit Plan Progress HEP, progress trunk and lumbopelvic strength
--- NOTE | 2023-03-12 12:28 | PT.OTN ---
Current Diagnoses Lumbago with sciatica, unspecified side (03/12/23) Physical Therapy Treatment Note PT-OP-A Visit Information Start: 02/19/23 08:52 Freq: Status: Active Protocol: Document 03/12/23 09:04 NM (Rec: 03/12/23 09:48 NM [id number]) Out-Patient Physical Therapy Visit Information Visit Information Visit Type Treatment Note Visit Start Time 09:00 Visit Stop Time 09:45 Total Visit Minutes 45 Visit Number 3 Evaluation Information Evaluation Date 02/24/23 PT-OP-B Current Condition Start: 02/19/23 08:52 Freq: Status: Active Protocol: Document 03/04/23 09:53 AM (Rec: 03/04/23 11:58 AM [id number]) Current Condition History of Current Condition Onset Date 6 weeks ago. Current Complaints Minimal R glute pain currently . History of Current Condition Pt reports pain started 6 weeks ago. Pt without known injury to cause back pain. Pt thinks that it might have started from sitting wrong. Pt reports that he mentioned pain to referring provider at yearly check-up and was referred to PT. Between the time from yearly check-up to now, pt reports significant decrease in pain. Pt reports that he is able to play golf without pain. Pt reports that he has been doing a seated figure 4 stretch and that seems to have helped. Pt reports that pain was primarily at his R glute with occasional radicular symptoms to hamstring. Pt denies low back symptoms. Prior Treatments and Tests none Future Testing and Treatments Planned none PT-OP-C Subjective Start: 02/19/23 08:52 Freq: Status: Active Protocol: Document 03/12/23 09:04 NM (Rec: 03/12/23 09:48 NM [id number]) OP-PT Subjective Patient Comments Patient Comments Pt reports no stiffness, soreness, or pain in his back. He does report a cramp in B calves, which he thinks is from dehydration because he doesn't drink very much water. He is wanting to only have 1 more session then continue an HEP at home because he doesn't think that he needs any more PT/he can manage at home. PT-OP-D Balance Start: 02/19/23 08:52 Freq: Status: Active Protocol: Document 02/24/23 09:50 AM (Rec: 02/24/23 17:09 AM [id number]) Balance Tests Single Limb Standing Single Limb- Right 10 Single Limb- Left 10 PT-OP-K Range of Motion Start: 02/19/23 08:52 Freq: Status: Active Protocol: Document 02/24/23 09:50 AM (Rec: 02/24/23 17:09 AM [id number]) Lumbar Spine Range of Motion Lumbar Spine Active Testing Position Standing Flexion 75 Extension 75 Rotation Left 75 Rotation Right 75 Lateral Flexion Left 75 Lateral Flexion Right 75 Comments flexion: 6.5 in (from fingertips to floor) R lateral flexion: 20 in (from fingertips to floor) L lateral flexion: 18.5 (from finger tips to floor) Ext 35 deg % above is 75% of normal=(100% ) Hip Goniometric Range of Motion Hip Right Active Internal Rotation 29 External Rotation 20 Comments Hamstring 90/90: 35 Left Active Internal Rotation 25 External Rotation 25 Comments Hamstring 90/90: 35 PT-OP-L Special Tests Start: 02/19/23 08:52 Freq: Status: Active Protocol: Document 02/24/23 09:50 AM (Rec: 02/24/23 17:09 AM [id number]) Special Tests Lumbar Spine Special Tests Prone Press Up Test Results negative for sxs, Pt report low back tightness only. PT-OP-M Strength Start: 02/19/23 08:52 Freq: Status: Active Protocol: Document 02/24/23 09:50 AM (Rec: 02/24/23 17:09 AM [id number]) Hip Strength Hip Manual Muscle Testing Right Flexion (L2) 4 Good Extension (S1) 5 Normal Abduction 4- Good- Adduction 5 Normal External Rotation 4- Good- Internal Rotation 4- Good- Comments pain with IR testing Left Flexion (L2) 4 Good Abduction 4- Good- External Rotation 4 Good Internal Rotation 4 Good Knee Strength Knee Manual Muscle Testing Right Flexion (S2) 5 Normal Extension (L3) 5 Normal Left Flexion (S2) 5 Normal Extension (L3) 5 Normal PT-OP-Q Treatments Start: 02/19/23 08:52 Freq: Status: Active Protocol: Document 03/12/23 09:04 NM (Rec: 03/12/23 09:48 NM [id number]) Cardio Equipment Treadmill Duration (Minutes) 6 Speed 2.2 Incline 2.0 Other 4 min fwd, 2 min retro for hip ext Therapeutic Exercises Supine Exercises Hamstring curl Supine Exercise Name swissball (orange) Side bilateral Equipment Used with mini bridge Reps/Minutes 2x12 Comments cues for pelvic stab Bridge Supine Exercise Name single leg bridge Reps/Minutes 1x12 Comments cued TA/pelvic stab, glute activation Sahrmann Supine Exercise Name low ab Reps/Minutes x10 Prone Exercises plank Prone Exercise Name 1. on knees, 2. bear plank Reps/Minutes 2x30 ea Comments cues to lift stomach from bed, core stab; reports bear plank hard on arms Superman Prone Exercise Name arms in front; arm and leg lift Reps/Minutes 10x5 hold Comments reports more difficult with arms in front; good coordination/contraction EMILIA Reps/Minutes 1 min Comments as rest between sets Standing Exercises Deadlift Resistance 10# ea arm Equipment Used dowel on back for tactile cue to hinge Reps/Minutes 2x8 Comments tries to flex shoulders instead of hinge as he fatigues Pallof press Standing Exercise Name 1. pallof, 2. walk outs with arms ext for core stability Side bilateral Resistance GTB Reps/Minutes 1x10 ea Comments cues for TA stab; don't let the band twist you, demos difficulty to stab Hip hinge Equipment Used dowel Reps/Minutes x10 Comments cues for hip hinge, ext spine PT-OP-T Assessment and Plan Start: 02/19/23 08:52 Freq: Status: Active Protocol: Document 03/12/23 09:04 NM (Rec: 03/12/23 09:48 NM [id number]) Physical Therapy Assessment Rehab Potential Rehabilitation Potential Excellent Evaluation Complexity Number of Personal Factors/Comorbidities 1-2 Number of Body Systems Impaired 1-2 Clinical Presentation at Evaluation Stable Impairments Impairments Activity Tolerance,Balance, Functional Activities, Functional Mobility,Gait,Pain, Posture,ROM,Soft Tissue Mobility,Strength Goals Hip hinge Child Care Goal (LTG) Pt able to demonstrate proper hip hinge for inproved tolerance to functional bending to picking tech golf ball/ objects. LTG Duration 03/24/23 Hamstring length Long-Term Goal (LTG) Pt with HS 90/90 length of 25 deg. LTG Duration 03/24/23 HEP Long-Term Goal (LTG) Pt independent with HEP. LTG Duration 03/24/23 Assessment Summary Assessment Pt tolerated treatment well; he does not report any back or sciatic pain symptoms prior to or during session. Tmt focus on strengthening trunk/ core/hamstrings, encouraging hamstring length, and promoting good spine mechanics to decrease risk of low back pain symptoms. Initiated modified planks and bear planks today and progressed deadlift to heavier resistance . Also added hamstring strengthening exercises. Issued HEP: superman with arms in front, single leg bridge, bear plank, HSC, modified plank, and band walkouts for core. Pt is wanting to d/c after next session with an HEP ; PT will assess next session as long as pt continues to be symptom-free and progresses with activity. Pt would benefit from skilled PT to progress trunk stabilization, trunk and LE mobility to return to PLOF and decrease risk of LBP reoccurrence. Physical Therapy Plan Frequency and Duration Frequency of Treatment 1x/Week Duration of treatment (weeks) 4 Plan of Care Start Date 02/24/23 Plan of Care End Date 03/24/23 Therapeutic Interventions Therapeutic Interventions Balance Training,Gait Training ,Home Exercise Program,Joint Mobilizations,Manual Therapy, Neuromuscular Re-education, Patient/Caregiver Education, Self-Care/Home Management,Soft Tissue Mobilization, Therapeutic Activities, Therapeutic Exercises Modalities Cold Pack/Ice Massage,Electric Stimulation,Hot Packs, Ultrasound Next Visit Focus/Plan Next Note Type Discharge Summary Next Visit Plan Progress HEP, progress trunk and lumbopelvic strength Discharge next session if pt continues to progress and be symptom free, make HEP
--- NOTE | 2023-04-02 07:53 | PT.OPDS ---
Current Diagnoses Lumbago with sciatica, unspecified side (03/12/23) Visit Care Team Role Provider Type Ibis Winkler DO Attending Provider Physician Family Provider Primary Care Provider Referring Provider Specialty: Medical Address: [address] [place] [address], [address], [place], [address] Email: [email or web address] Visit Number Visit Number 3 Discharge Summary PT-OP-B Current Condition Start: 02/19/23 08:52 Freq: Status: Active Protocol: Document 03/04/23 09:53 AM (Rec: 03/04/23 11:58 AM [id number]) Current Condition History of Current Condition Onset Date 6 weeks ago. Current Complaints Minimal R glute pain currently . History of Current Condition Pt reports pain started 6 weeks ago. Pt without known injury to cause back pain. Pt thinks that it might have started from sitting wrong. Pt reports that he mentioned pain to referring provider at yearly check-up and was referred to PT. Between the time from yearly check-up to now, pt reports significant decrease in pain. Pt reports that he is able to play golf without pain. Pt reports that he has been doing a seated figure 4 stretch and that seems to have helped. Pt reports that pain was primarily at his R glute with occasional radicular symptoms to hamstring. Pt denies low back symptoms. Prior Treatments and Tests none Future Testing and Treatments Planned none PT-OP-C Subjective Start: 02/19/23 08:52 Freq: Status: Active Protocol: Document 03/12/23 09:04 NM (Rec: 03/12/23 09:48 NM [id number]) OP-PT Subjective Patient Comments Patient Comments Pt reports no stiffness, soreness, or pain in his back. He does report a cramp in B calves, which he thinks is from dehydration because he doesn't drink very much water. He is wanting to only have 1 more session then continue an HEP at home because he doesn't think that he needs any more PT/he can manage at home. PT-OP-D Balance Start: 02/19/23 08:52 Freq: Status: Active Protocol: Document 02/24/23 09:50 AM (Rec: 02/24/23 17:09 AM [id number]) Balance Tests Single Limb Standing Single Limb- Right 10 Single Limb- Left 10 PT-OP-K Range of Motion Start: 02/19/23 08:52 Freq: Status: Active Protocol: Document 02/24/23 09:50 AM (Rec: 02/24/23 17:09 AM [id number]) Lumbar Spine Range of Motion Lumbar Spine Active Testing Position Standing Flexion 75 Extension 75 Rotation Left 75 Rotation Right 75 Lateral Flexion Left 75 Lateral Flexion Right 75 Comments flexion: 6.5 in (from fingertips to floor) R lateral flexion: 20 in (from fingertips to floor) L lateral flexion: 18.5 (from finger tips to floor) Ext 35 deg % above is 75% of normal=(100% ) Hip Goniometric Range of Motion Hip Right Active Internal Rotation 29 External Rotation 20 Comments Hamstring 90/90: 35 Left Active Internal Rotation 25 External Rotation 25 Comments Hamstring 90/90: 35 PT-OP-L Special Tests Start: 02/19/23 08:52 Freq: Status: Active Protocol: Document 02/24/23 09:50 AM (Rec: 02/24/23 17:09 AM [id number]) Special Tests Lumbar Spine Special Tests Prone Press Up Test Results negative for sxs, Pt report low back tightness only. PT-OP-M Strength Start: 02/19/23 08:52 Freq: Status: Active Protocol: Document 02/24/23 09:50 AM (Rec: 02/24/23 17:09 AM [id number]) Hip Strength Hip Manual Muscle Testing Right Flexion (L2) 4 Good Extension (S1) 5 Normal Abduction 4- Good- Adduction 5 Normal External Rotation 4- Good- Internal Rotation 4- Good- Comments pain with IR testing Left Flexion (L2) 4 Good Abduction 4- Good- External Rotation 4 Good Internal Rotation 4 Good Knee Strength Knee Manual Muscle Testing Right Flexion (S2) 5 Normal Extension (L3) 5 Normal Left Flexion (S2) 5 Normal Extension (L3) 5 Normal PT-OP-T Assessment and Plan Start: 02/19/23 08:52 Freq: Status: Active Protocol: Document 04/01/23 16:44 NM (Rec: 04/01/23 16:47 NM [id number]) Physical Therapy Assessment Goals Hip hinge Fdc Goal (LTG) Pt able to demonstrate proper hip hinge for inproved tolerance to functional bending to cone picker golf ball/ objects. LTG Duration 12/11/23 MET Hamstring length Fdc Goal (LTG) Pt with HS 90/90 length of 25 deg. LTG Duration 03/24/23 NOT MET HEP Fdc Goal (LTG) Pt independent with HEP. LTG Duration 03/24/23 MET Assessment Summary Assessment Pt has been seen in clinic for low back pain since 02/24/23. He has attended 2 treatment sessions after IE. Pt was scheduled for his last appt on 03/19, but wanted to change his appt time to 03/24 when his POC would end. Pt was unable to get another appt, declined to keep his original appt on 03/19. PT and pt expected pt to discharge to independent exercise with HEP after 03/19 appt as pt was reporting resolution of sciatic symptoms. He also reported at session that he was able to perform most ADLs/ recreational activities without limitation. Pt has met 2/3 LTG. Pt instructed to seek new referral from PCP if symptoms return or worsen. Physical Therapy Plan Discharge Physical Therapy Discharge Reasons Patient Request Discharge Comments Pt canceled last appt on 03/19 and declined to reschedule another appt within POC dates Next Visit Focus/Plan Next Visit Plan Discharge from PT
== END 2023-04-02 12:41 | disposition home or self-care (01) ==
LOC: PHYS 09:00
PROVIDERS: Family Provider Family Medicine; PCP Family Medicine; Referring Provider Family Medicine; Visit Provider Family Medicine
DX: M54.40 Lumbago with sciatica, unspecified side (principal)
CPT/HCPCS: 97110; 97140; 97161

== ENCOUNTER → 2023-09-04 07:31 | Outpatient (CLI) | payer OTHER, SELFPAY ==
[2023-09-04 08:24] LABS: Hematocrit 48.3 % (41-53); Hemoglobin 16.7 g/dL (13.5-17.5); Mean Corpuscular HGB Conc 34.5 % (30-36); Mean Corpuscular Hemoglobin 32.1 PG (26-34); Platelet Count 177 X10^3/uL (150-400); Red Blood Cell Count 5.19 X10^6/uL (4.5-5.9); Red Cell Distribution Width 13.2 % (11.6-14.8); White Blood Cell Count 8.5 X10^3/uL (4.5-11.0)
[2023-09-04 08:47] LABS: BUN Creatinine Ratio 19.3 (6-22); Blood Urea Nitrogen 17 mg/dL (9-20); Calcium 8.9 mg/dL (8.4-10.2); Carbon Dioxide 23 mmol/L (22-32); Chloride 108 mmol/L (98-107); Cholesterol 118 mg/dL (140-199); Estimated Glomerular Filt Rate > 60 mL/min (>60); Glucose 97 mg/dL (80-110); HDL Cholesterol 29 mg/dL (40-60); HEMOLYSIS < 15 (0-50); LDL Cholesterol Calculated 63 mg/dL (<100); Potassium 4.5 mmol/L (3.4-5.1); Sodium 140 mmol/L (137-145); Triglycerides 130 mg/dL (35-150)
[2023-09-04 09:20] LABS: Prostate Specific Antigen Scrn 1.11 ng/mL (0.1-4.0)
[2023-09-04 11:00] LABS: Creatinine Urine Random 227.36 mg/dL
[2023-09-04 11:08] LABS: Microalbumin Urine Random 0.6 mg/dL (0-1.6)
== END ==
PROVIDERS: Family Provider Family Medicine; PCP Family Medicine; Referring Provider Family Medicine; Visit Provider Family Medicine
DX: Z12.5 Encounter for screening for malignant neoplasm of prostate (principal); E78.5 Hyperlipidemia, unspecified; R03.0 Elevated blood-pressure reading, without diagnosis of hypertension
CPT/HCPCS: 36415; 80048; 80061; 82043; 82570; 85027; 86140; G0103

== ENCOUNTER 2024-09-20 08:26 | Emergency (ER) | payer OTHER, SELFPAY ==
[2024-09-20] VITALS (11 sets, daily range): BP systolic 145–166; BP diastolic 93–108; PULSE 68–79; RESP 15–19; TEMP 36.6; O2SAT 94–99; BMI 28.8
--- NOTE | 2024-09-20 08:39 | DI.RAD.S_ITS ---
PROCEDURE: XR CHEST 1V INDICATIONS: chest pain TECHNIQUE: One view of the chest was acquired. COMPARISON: None. FINDINGS: Surgical changes and devices: None. Lungs and pleura: Lungs are clear. No pleural effusions or pneumothorax. Mediastinum: Mediastinal contours appear normal. Heart size is normal. Bones and chest wall: No suspicious bony lesions. Overlying soft tissues appear unremarkable. IMPRESSION: No acute cardiopulmonary pathology. Dictated by: Eleuterio Addison M.D. on 09/20/2024 at 9:00 Approved by: Eleuterio Addison M.D. on 09/20/2024 at 9:02
--- NOTE | 2024-09-20 08:41 | EKG_ITS ---
[address] [address] Test Date: 2024-09-20 Pat Name: Chaitanya Moe Department: Room: Gender: Male [employer]: LOGAN : 1960 Requested By: Order Number: [id number] Reading MD: Anup Saleh Measurements Intervals [place] Rate: 78 P: 45 MO: 166 QRS: 6 QRSD: 86 T: 21 QT: 360 QTc: 410 Interpretive Statements Normal sinus rhythm Electronically Signed On 09-24-2024 0:02:04 PDT by Anup Saleh
--- NOTE | 2024-09-20 08:41 | ED.DIZZY ---
HPI - Dizziness General Chief Complaint: Dizziness Stated Complaint: Sent from [facility] for Irregular Heart Beat Time Seen by Provider: 09/20/24 08:30 History of Present Illness HPI Narrative: Patient here with . Sent over from walk-in clinic for dizziness. Patient has history of cardiac ablation for atrial fibrillation 2 years ago and [place]. Patient has been doing well is not on any blood pressure medication or blood thinners. Patient just had primary care follow up preventive/wellness office visit September 02, 2024. Patient denies any events over the weekend. He went to bed last night with a any symptoms. However awoke this morning feeling of the room is spinning and off-balance. Worse with up and walking. Denies any chest pain or palpitations or dyspnea. Patient states his atrial fibrillation diagnosis years ago, he did not have any symptoms. Patient denies any headache facial droop slurred speech limb numbness tingling or weakness. Patient denies any sensation of palpitations at this time. Patient went to bed at 10:30 a.m. last night awoke at 6:00 a.m. today feeling dizzy. Room spinning. No nausea no sweating. No hearing changes. No vision changes otherwise. No slurred speech or facial droop. No limb numbness tingling or weakness. Patient feeling much better now, however blood pressure noted and he states he is anxious. Dizziness was worse with up and walking. Fast exam is negative at this time Related Data Home Medications ?Medication ?Instructions ?Recorded ?Confirmed coenzyme Q10 PO 09/02/23 09/02/24 omega-3 acid ethyl esters PO 09/02/23 09/02/24 vitamin B complex 1 tab PO DAILY 09/02/23 09/02/24 Previous Rx's ?Medication ?Instructions ?Recorded meclizine 50 mg tablet 50 mg PO BID PRN dizziness or 09/20/24 vertigo #20 tabs Allergies Allergy/AdvReac Type Severity Reaction Status Date / Time No Known Drug Allergies Allergy Verified 09/20/24 08:41 Review of Systems Review of Systems Narrative: GENERAL: Negative chills, fatigue, malaise, fever, sweats. HEENT: Negative sinus pain, ear pain, sore throat RESPIRATORY: Negative dyspnea, cough CARDIOVASCULAR: Negative chest pain, palpitations GASTROINTESTINAL: Negative vomiting, nausea, abdominal pain : Negative dysuria, frequency, hematuria MUSCULOSKELETAL: Negative muscle or bony pain SKIN: Negative rash, skin lesions NEUROLOGIC: Negative weakness, numbness, positive dizziness ROS Unobtainable: All systems reviewed & are unremarkable except as noted in HPI and below Patient History Medical History (Updated 09/20/24 @ 11:12 by Jose D Baldwin MD) History of atrial fibrillation (~2020) Right sciatic nerve pain Bilateral impacted cerumen Elevated blood pressure reading in office without diagnosis of hypertension Situational anxiety (~2021) Chicken pox Surgical History (Updated 06/30/22 @ 19:34 by Bridgette Mota) Anesthesia History of cardiac radiofrequency ablation (~2020) Social History household members: spouse alcohol intake: current alcohol intake frequency: holidays/special occasions only Exam Narrative Exam Narrative: GENERAL: in no distress, not toxic not dyspneic HEAD: Normocephalic. EYES: Pupils equal round ENT: Mucous membranes moist. NECK: Trachea midline. CARDIOVASCULAR: Regular rate and rhythm RESPIRATORY: Clear to auscultation. Breath sounds equal bilaterally. No wheezes, rales, or rhonchi. GASTROINTESTINAL: Abdomen soft, non-tender EXTREMITIES: No gross deformities. BACK: No flank tenderness. NEURO: AOx4. Clear speech no facial droop light touch intact bilateral face hands and legs, negative pronator drift. Strong equal business analysis consultant. Elevate each leg individually without drift. Jwvffv-my-ibcs intact bilaterally. SKIN: Warm and dry PSYCH: Not anxious, is cooperative Initial Vital Signs Initial Vital Signs: Vital Signs Pulse Rate 79 09/20/24 08:41 Respiratory Rate 18 09/20/24 08:41 Blood Pressure 166/108 H 09/20/24 08:41 Oxygen Delivery Method Room Air 09/20/24 08:41 Scores NIH Stroke Scale Level of Conciousness: Alert, keenly responsive Ask month/age: Answers both questions correctly. Open/close eyes, close hand: Performs both tasks correctly Best gaze horizontal: Normal Visual henson: No visual loss Facial palsy: Normal symetrical movement Left arm drift: No drift for full 10 sec Right arm drift: No drift for full 10 sec Left leg drift: No drift for full 5 sec Right leg drift: No drift for full 5 sec Limb ataxia: Absent Sensory on face/arms/legs: Normal, no sensory loss Best language: No aphasia, normal Dysarthria: Normal Extinction or inattention: No abnormality Total NIH Stroke scale score: 0 Course Orders Ordered: Discontinued Medications Sodium Chloride (Normal Saline 0.9%) 500 mls @ 1,000 mls/hr IV BOLUS ONE Stop: 09/20/24 09:19 Last Infusion: 09/20/24 10:13 Dose: Infused Documented By: Admin: 09/20/24 09:39 Dose: 1,000 mls/hr Documented By: LM Meclizine HCl (Meclizine Hcl 12.5 Mg Tablet) 50 mg PO NOW ONE Stop: 09/20/24 09:48 Last Admin: 09/20/24 10:15 Dose: 50 mg Documented By: LM Vital Signs Vital signs: Vital Signs - 8 hr 09/20/24 08:41 09/20/24 09:04 09/20/24 09:30 Pulse Rate 79 75 Respiratory Rate 18 Blood Pressure 166/108 H 155/98 H Pulse Oximetry 94 Oxygen Delivery Method Room Air 09/20/24 09:30 09/20/24 09:58 09/20/24 09:58 Pulse Rate 73 70 Respiratory Rate 19 16 Blood Pressure 157/100 H Pulse Oximetry 95 97 Oxygen Delivery Method 09/20/24 10:00 09/20/24 10:00 09/20/24 10:28 Pulse Rate 73 Respiratory Rate 18 Blood Pressure 156/101 H 166/93 H Pulse Oximetry 96 Oxygen Delivery Method 09/20/24 10:28 09/20/24 10:30 09/20/24 10:30 Pulse Rate 71 69 Respiratory Rate 16 15 Blood Pressure 153/97 H Pulse Oximetry 98 98 Oxygen Delivery Method 09/20/24 10:57 09/20/24 10:57 09/20/24 11:00 Pulse Rate 69 Respiratory Rate Blood Pressure 161/96 H 153/100 H Pulse Oximetry 98 Oxygen Delivery Method 09/20/24 11:00 Pulse Rate 69 Respiratory Rate Blood Pressure Pulse Oximetry 99 Oxygen Delivery Method MDM - Dizziness Lab Data 09/20/24 09:30 09/20/24 09:30 Labs: Lab Results 09/20/24 Range/Units 09:30 WBC 7.6 (4.5-11.0) X10^3/uL RBC 5.20 (4.5-5.9) X10^6/uL Hgb 16.6 (13.5-17.5) g/dL Hct 48.5 (41-53) % MCV 93.3 (80-100) fL MCH 32.0 (26-34) PG MCHC 34.3 (30-36) % RDW 13.3 (11.6-14.8) % Plt Count 167 (150-400) X10^3/uL Neut % (Auto) 74.7 (50-75) % Lymph % (Auto) 14.6 L (25-40) % [place] % (Auto) 9.4 (3-14) % Eos % (Auto) 0.7 L (2-4) % Baso % (Auto) 0.6 (0-2) % Neut # (Auto) 5600 (1293-7403) /uL Lymph # (Auto) 1100 (1787-1558) /uL [place] # (Auto) 700 (0-900) /uL Eos # (Auto) 100 (0-450) /uL Baso # (Auto) 0 (0-100) /uL PT 12.2 (9.4-12.5) SECONDS INR 1.1 (0.9-1.3) APTT 31 (25.1-36.5) SECONDS Sodium 139 (137-145) mmol/L Potassium 4.3 (3.4-5.1) mmol/L Chloride 107 (98-107) mmol/L Carbon Dioxide 23 (22-32) mmol/L BUN 19 (9-20) mg/dL Creatinine 0.86 (0.66-1.25) mg/dL Estimated GFR > 60 (>60) mL/min BUN/Creatinine Ratio 22.1 H (6-22) Glucose 96 (70-99) mg/dL Calcium 9.0 (8.4-10.2) mg/dL Total Bilirubin 0.8 (0.2-1.3) mg/dL AST 26 (17-59) IU/L ALT 22 (<50) IU/L Alkaline Phosphatase 68 (38-126) U/L Total Creatine Kinase 71 (55-170) U/L Troponin I < 0.012 (0.01-0.034) ng/mL Total Protein 7.0 (6.3-8.2) g/dL Albumin 4.1 (3.5-5.0) g/dL Globulin 2.9 (1.7-4.1) g/dL Albumin/Globulin Ratio 1.4 (1.0-2.8) TSH 1.22 (0.47-4.68) uIU/mL Ethyl Alcohol < 10 (<10) mg/dL Imaging Data Chest x-ray: Radiologist's Impression: [address] [address] XRay Report Signed Patient: Chaitanya Moe MR#: [id number] : 1960 Acct:[id number] Age/Sex: 64 / M Date of Service: 09/20/24 Loc: ED Accession Number: [id number] Procedure: XR chest 1V Ordering Provider: Jose D Baldwin MD PROCEDURE: XR CHEST 1V INDICATIONS: chest pain TECHNIQUE: One view of the chest was acquired. COMPARISON: None. FINDINGS: Surgical changes and devices: None. Lungs and pleura: Lungs are clear. No pleural effusions or pneumothorax. Mediastinum: Mediastinal contours appear normal. Heart size is normal. Bones and chest wall: No suspicious bony lesions. Overlying soft tissues appear unremarkable. IMPRESSION: No acute cardiopulmonary pathology. Dictated by: Eleuterio Addison M.D. on 09/20/2024 at 9:00 Approved by: Eleuterio Addison M.D. on 09/20/2024 at 9:02 CT scan - head: Radiologist's Impression: [address] [address] [address] Scan Report Signed Patient: Chaitanya Moe MR#: [id number] : 1960 Acct:[id number] Age/Sex: 64 / M Date of Service: 09/20/24 Loc: ED Accession Number: [id number] Procedure: CT head/brain wo con Ordering Provider: Jose D Baldwin MD PROCEDURE: CT HEAD/BRAIN WO CON INDICATIONS: dizziness TECHNIQUE: Noncontrast 4.5 mm thick angled axial sections acquired from the foramen magnum to the vertex, with coronal and sagittal reformats. For radiation dose reduction, the following was used: automated exposure control, adjustment of mA and/or kV according to patient size. COMPARISON: None. FINDINGS: Image quality: Diagnostic. CSF spaces: Basal cisterns are patent. No extra-axial fluid collections. The ventricles are symmetric in size and shape. Brain: No intracranial bleeds or mass effect. There is cerebral volume loss, with resultant ventricular and sulcal prominence. There are periventricular and deep white matter chronic small vessel ischemic changes. There is intracranial internal carotid artery atherosclerosis. Skull and face: Calvarium and visualized facial bones appear intact, without suspicious lesions. Sinuses: Visualized sinuses and mastoids are clear. IMPRESSION: No acute intracranial pathology. Dictated by: Eleuterio Addison M.D. on 09/20/2024 at 10:16 Approved by: Eleuterio Addison M.D. on 09/20/2024 at 10:16 CTA - brain/neck: Radiologist's Impression: [address] [address] [address] Scan Report Signed Patient: Chaitanya Moe MR#: [id number] : 1960 Acct:[id number] Age/Sex: 64 / M Date of Service: 09/20/24 Loc: ED Accession Number: [id number] Procedure: CT angio head and neck Ordering Provider: Jose D Baldwin MD PROCEDURE: CT ANGIO HEAD AND NECK INDICATIONS: Dizziness TECHNIQUE: After the administration of intravenous contrast, 1 mm thick sections acquired from the aortic arch through the [place]. 3-dimensional txulqul-tfjuukbsu-jouzdkbfem (MIP) and/or volume rendering reformats were acquired of the central intracranial vasculature and neck separately. For radiation dose reduction, the following was used: automated exposure control, adjustment of mA and/or kV according to patient size. COMPARISON: None. FINDINGS: Image quality: Diagnostic. Cerebral CT Angiogram: Internal carotid arteries: No acute findings. Intracranial ICA are patent with no significant stenosis. No occlusion. No aneurysm. Anterior cerebral arteries: Unremarkable. No significant stenosis. No occlusion. No aneurysm. Middle cerebral arteries: Unremarkable. No significant stenosis. No occlusion. No aneurysm. Posterior cerebral arteries: Unremarkable. No significant stenosis. No occlusion. No aneurysm. Basilar artery: Unremarkable. No significant stenosis. No occlusion. No aneurysm. Vertebral arteries: Unremarkable as visualized. Dural venous sinuses: Unremarkable given phase of enhancement. Other: Arterial phase appearance of the brain parenchyma is unremarkable. Neck CT Angiogram: Internal carotid arteries: Unremarkable. No significant stenosis. No dissection or occlusion. Common carotid arteries: Unremarkable. No significant stenosis. No dissection or occlusion. External carotid arteries: Unremarkable. No occlusion. Vertebral arteries: Dominant left vertebral artery. No significant stenosis. No dissection or occlusion. Aortic Arch and Mediastinum: Partially visualized aortic arch unremarkable without evidence of aneurysm. Origins of the great vessels unremarkable. Other: Arterial phase soft tissues of the neck and chest are unremarkable. IMPRESSION: 1. No significant intracranial arterial abnormality is seen. 2. No significant abnormality is seen within the arteries of the neck. Any quantitative measurements of stenosis were performed using NASCET criteria. Dictated by: Eleuterio Addison M.D. on 09/20/2024 at 10:17 Approved by: Eleuterio Addison M.D. on 09/20/2024 at 10:19 MRI brain: Radiologist's Impression: [address] [address] Magnetic Resonance Report Signed Patient: Chaitanya Moe MR#: [id number] : 1960 Acct:[id number] Age/Sex: 64 / M Date of Service: 09/20/24 Loc: ED Accession Number: [id number] Procedure: MR head/brain wo con Ordering Provider: Jose D Baldwin MD PROCEDURE: MR HEAD/BRAIN WO CON INDICATIONS: dizzy/afib TECHNIQUE: Non-contrast axial T1 spin echo, axial T2 fast spin echo, sagittal and axial FLAIR, coronal T2 fast spin echo, axial gradient echo, axial diffusion and ADC through the brain. COMPARISON: None. FINDINGS: Image quality: Excellent. CSF spaces: Ventricles appear symmetric in size and shape. Basal cisterns are patent. No extra-axial fluid collections. Brain: No intracranial bleeds or mass effects. There is cerebral volume loss for age. There are periventricular and deep white matter chronic small vessel ischemic changes. Brainstem appears normal. Diffusion-weighted images show no acute infarct. No chronic ischemic insults. Normal intravascular flow voids are present. Skull and face: Calvarial bone marrow is normal in signal. Orbits are normal. Sinuses: Sinuses and mastoids are clear. IMPRESSION: 1. No acute infarction. No intracranial bleed, midline shift or mass effect. 2. Mild age related volume loss. Dictated by: Eleuterio Addison M.D. on 09/20/2024 at 10:59 Approved by: Eleuterio Addison M.D. on 09/20/2024 at 11:00 [facility] Narrative Medical decision making narrative: Patient here with . Sent over from walk-in clinic for dizziness. Patient has history of cardiac ablation for atrial fibrillation 2 years ago and [place]. Patient has been doing well is not on any blood pressure medication or blood thinners. Patient just had primary care follow up preventive/wellness office visit September 02, 2024. Patient denies any events over the weekend. He went to bed last night with a any symptoms. However awoke this morning feeling of the room is spinning and off-balance. Worse with up and walking. Denies any chest pain or palpitations or dyspnea. Patient states his atrial fibrillation diagnosis years ago, he did not have any symptoms. Patient denies any headache facial droop slurred speech limb numbness tingling or weakness. Patient denies any sensation of palpitations at this time. Patient went to bed at 10:30 a.m. last night awoke at 6:00 a.m. today feeling dizzy. Room spinning. No nausea no sweating. No hearing changes. No vision changes otherwise. No slurred speech or facial droop. No limb numbness tingling or weakness. Patient feeling much better now, however blood pressure noted and he states he is anxious. Dizziness was worse with up and walking. Fast exam is negative at this time After history and exam, CBC CMP troponin TSH EKG chest x-ray CT head CT angio head and neck normal saline MDM Medical records reviewed: September 02, 2024 primary care office visit notes Differential considered: Includes but not limited to TIA stroke AFib dehydration SVT a flutter vertigo Lab Test results independently reviewed as above. Pertinent findings: WBC 7.6 hemoglobin 16.6 INR 1.1 troponin less than 0.012 BUN 19 creatinine 0.86 Independently reviewed EKG normal sinus rhythm rate 78 normal EKG Imaging studies independently reviewed: CT head CT angiogram head and neck chest x-ray no acute finding MRI brain no acute finding Consultations: Re-evaluations: 10:31 a.m.. Patient updated so far results. MRI is ordered. He states he has not been dizzy since leaving the house. Symptoms have resolved with dizziness but slightly lightheaded. He is up and walking of the bathroom without assist. No ataxia. He states he still feels a little lightheaded. 11:08 a.m.. Reviewed results with patient. MRI is reassuring. Blood pressure has improved. Patient has been up and walking and feeling much better. Prescription for Antivert will be provided. Reviewed with him to have blood pressure rechecked with primary care, may need to start blood pressure medication. Reviewed with patient may have developed vertigo however atrial fibrillation is still considered. Discussion: Appropriate for discharge home. Exam is reassuring. Symptoms have improved during course of stay. Antivert was given. Patient does have primary care to follow up with to have blood pressure rechecked. Patient admits he is slightly anxious and may be contributing to the blood pressure. Diagnosis: Vertigo Discharge Plan Departure Patient Disposition: Home Clinical Impression: Vertigo Instructions: DI for Vertigo Activity Restrictions/Additional Instructions: Your exam and laboratory studies and imaging studies an MRI and EKG work are reassuring today. It is possible you had vertigo episode today or your atrial fibrillation exacerbation may have triggered to cause dizziness. See your family doctor within for recheck your blood pressure, you may need to start blood pressure medication. You will need family doctor to schedule a Holter monitor or Zio patch for monitoring atrial fibrillation or arrhythmia. 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 This is to help for dizziness worse if any questions or concerns. Please do take your blood pressure and journal family doctor office visit. Return if worse if any questions or concerns. Prescriptions: New meclizine 50 mg tablet 50 mg PO BID PRN (Reason: dizziness or vertigo) Qty: 20 0RF No Action omega-3 acid ethyl esters PO coenzyme Q10 PO vitamin B complex Tablet 1 tab PO DAILY Referrals: Ibis Winkler DO [Primary Care Provider, Medical] Stand Alone Forms: Patient Portal/API
--- NOTE | 2024-09-20 08:49 | DI.CT.S_ITS ---
PROCEDURE: CT HEAD/BRAIN WO CON INDICATIONS: dizziness TECHNIQUE: Noncontrast 4.5 mm thick angled axial sections acquired from the foramen magnum to the vertex, with coronal and sagittal reformats. For radiation dose reduction, the following was used: automated exposure control, adjustment of mA and/or kV according to patient size. COMPARISON: None. FINDINGS: Image quality: Diagnostic. CSF spaces: Basal cisterns are patent. No extra-axial fluid collections. The ventricles are symmetric in size and shape. Brain: No intracranial bleeds or mass effect. There is cerebral volume loss, with resultant ventricular and sulcal prominence. There are periventricular and deep white matter chronic small vessel ischemic changes. There is intracranial internal carotid artery atherosclerosis. Skull and face: Calvarium and visualized facial bones appear intact, without suspicious lesions. Sinuses: Visualized sinuses and mastoids are clear. IMPRESSION: No acute intracranial pathology. Dictated by: Eleuterio Addison M.D. on 09/20/2024 at 10:16 Approved by: Eleuterio Addison M.D. on 09/20/2024 at 10:16
--- NOTE | 2024-09-20 08:49 | DI.CT.S_ITS ---
PROCEDURE: CT ANGIO HEAD AND NECK INDICATIONS: Dizziness TECHNIQUE: After the administration of intravenous contrast, 1 mm thick sections acquired from the aortic arch through the [place]. 3-dimensional aciimcg-jlukktdtj-eydtdeltjt (MIP) and/or volume rendering reformats were acquired of the central intracranial vasculature and neck separately. For radiation dose reduction, the following was used: automated exposure control, adjustment of mA and/or kV according to patient size. COMPARISON: None. FINDINGS: Image quality: Diagnostic. Cerebral CT Angiogram: Internal carotid arteries: No acute findings. Intracranial ICA are patent with no significant stenosis. No occlusion. No aneurysm. Anterior cerebral arteries: Unremarkable. No significant stenosis. No occlusion. No aneurysm. Middle cerebral arteries: Unremarkable. No significant stenosis. No occlusion. No aneurysm. Posterior cerebral arteries: Unremarkable. No significant stenosis. No occlusion. No aneurysm. Basilar artery: Unremarkable. No significant stenosis. No occlusion. No aneurysm. Vertebral arteries: Unremarkable as visualized. Dural venous sinuses: Unremarkable given phase of enhancement. Other: Arterial phase appearance of the brain parenchyma is unremarkable. Neck CT Angiogram: Internal carotid arteries: Unremarkable. No significant stenosis. No dissection or occlusion. Common carotid arteries: Unremarkable. No significant stenosis. No dissection or occlusion. External carotid arteries: Unremarkable. No occlusion. Vertebral arteries: Dominant left vertebral artery. No significant stenosis. No dissection or occlusion. Aortic Arch and Mediastinum: Partially visualized aortic arch unremarkable without evidence of aneurysm. Origins of the great vessels unremarkable. Other: Arterial phase soft tissues of the neck and chest are unremarkable. IMPRESSION: 1. No significant intracranial arterial abnormality is seen. 2. No significant abnormality is seen within the arteries of the neck. Any quantitative measurements of stenosis were performed using NASCET criteria. Dictated by: Eleuterio Addison M.D. on 09/20/2024 at 10:17 Approved by: Eleuterio Addison M.D. on 09/20/2024 at 10:19
[2024-09-20] MEDS: SODIUM CHLORIDE 0.9% 500 ML 1000 ML IV (09:39)
[2024-09-20 09:44] LABS: Add Manual Diff / Slide Review NO; Basophils Absolute Auto 0 /uL (0-100); Basophils Percent Auto 0.6 % (0-2); Eosinophils Absolute Auto 100 /uL (0-450); Eosinophils Percent Auto 0.7 % (2-4); Hematocrit 48.5 % (41-53); Hemoglobin 16.6 g/dL (13.5-17.5); Lymphocytes Absolute Auto 1100 /uL (1100-4500); Lymphocytes Percent Auto 14.6 % (25-40); Mean Corpuscular HGB Conc 34.3 % (30-36); Mean Corpuscular Volume 93.3 fL (80-100); Monocytes Absolute Auto 700 /uL (0-900); Monocytes Percent Auto 9.4 % (3-14); Neutrophils Absolute Auto 5600 /uL (1500-7000); Neutrophils Percent Auto 74.7 % (50-75); Platelet Count 167 X10^3/uL (150-400); Red Cell Distribution Width 13.3 % (11.6-14.8); White Blood Cell Count 7.6 X10^3/uL (4.5-11.0)
[2024-09-20 09:51] LABS: INR 1.1 (0.9-1.3); Prothrombin Time 12.2 SECONDS (9.4-12.5)
[2024-09-20 09:54] LABS: PTT Partial Thromboplastin Tim 31 SECONDS (25.1-36.5)
[2024-09-20 09:57] LABS: Alanine Aminotransferase 22 IU/L (<50); Albumin 4.1 g/dL (3.5-5.0); Albumin Globulin Ratio 1.4 (1.0-2.8); Alkaline Phosphatase 68 U/L (38-126); Aspartate Aminotransferase 26 IU/L (17-59); BUN Creatinine Ratio 22.1 (6-22); Bilirubin Total 0.8 mg/dL (0.2-1.3); Blood Urea Nitrogen 19 mg/dL (9-20); Carbon Dioxide 23 mmol/L (22-32); Chloride 107 mmol/L (98-107); Creatine Kinase 71 U/L (55-170); Estimated Glomerular Filt Rate > 60 mL/min (>60); Ethanol (ETOH) < 10 mg/dL (<10); Globulin 2.9 g/dL (1.7-4.1); Glucose 96 mg/dL (70-99); HEMOLYSIS 15 (0-50); Potassium 4.3 mmol/L (3.4-5.1); Sodium 139 mmol/L (137-145)
[2024-09-20 10:09] LABS: Troponin I < 0.012 ng/mL (0.01-0.034)
[2024-09-20] MEDS: MECLIZINE HCL 12.5 MG TABLET 50 MG PO (10:15)
[2024-09-20 10:28] LABS: Thyroid Stimulating Hormone 1.22 uIU/mL (0.47-4.68)
--- NOTE | 2024-09-20 10:30 | DI.MRI.S_ITS ---
PROCEDURE: MR HEAD/BRAIN WO CON INDICATIONS: dizzy/afib TECHNIQUE: Non-contrast axial T1 spin echo, axial T2 fast spin echo, sagittal and axial FLAIR, coronal T2 fast spin echo, axial gradient echo, axial diffusion and ADC through the brain. COMPARISON: None. FINDINGS: Image quality: Excellent. CSF spaces: Ventricles appear symmetric in size and shape. Basal cisterns are patent. No extra-axial fluid collections. Brain: No intracranial bleeds or mass effects. There is cerebral volume loss for age. There are periventricular and deep white matter chronic small vessel ischemic changes. Brainstem appears normal. Diffusion-weighted images show no acute infarct. No chronic ischemic insults. Normal intravascular flow voids are present. Skull and face: Calvarial bone marrow is normal in signal. Orbits are normal. Sinuses: Sinuses and mastoids are clear. IMPRESSION: 1. No acute infarction. No intracranial bleed, midline shift or mass effect. 2. Mild age related volume loss. Dictated by: Eleuterio Addison M.D. on 09/20/2024 at 10:59 Approved by: Eleuterio Addison M.D. on 09/20/2024 at 11:00
--- NOTE | 2024-09-20 10:30 | PC.NURSE ---
Pt ambulated to restroom with steady even gait, c/o unchanged lightheaded symptoms, RA, NAD, A&Ox4, breathing even/equal/unlabored at this time. Call light within reach, partner at bedside, no other needs at this time
== END 2024-09-20 11:24 | disposition home or self-care (01) ==
PROVIDERS: Emergency Provider Emergency Medicine; Family Provider Family Medicine; PCP Family Medicine
DX: R42 Dizziness and giddiness (principal); R07.9 Chest pain, unspecified
CPT/HCPCS: 36415; 70450; 70496; 70498; 70551; 71045; 80053; 80320; 82550; 84443; 84484; 85025; 85610; 85730; 93005; 96360; 99284; Q9967